=== PATIENT | male | born 1955 | race Caucasian/White ===

== ENCOUNTER 2024-09-23 14:02 | Emergency (ER) | payer OTHER ==
[2024-09-23] MEDS ORDERED: ASPIRIN 81 MG CHEWABLE TABLET ONE (15:01)
--- NOTE | 2024-09-23 15:02 | RAD REPORT ---
Procedure: Chest Single View HISTORY: Chest pain COMPARISON: May 2024 FINDINGS: The lungs appear clear of acute infiltrate. No significant pleural effusion noted. The heart is normal size. IMPRESSION: No acute abnormality is displayed.
[2024-09-23 15:19] LABS: Absolute Basophils 0.2 K/uL (0-0.5); Absolute Eosinophils 0.3 K/uL (0-0.5); Absolute Lymphocytes (CBC) 3.1 K/uL (0.7-4.9); Absolute Monocytes 1.8 K/uL (0.1-1.3); Absolute Neutrophil 14.3 K/uL (1.8-8.0); Eosinophils % 1.5 % (0-4.4); Hematocrit 43.8 % (39.6-49.0); Hemoglobin 15.1 g/dL (13.6-17.9); Lymphocytes % 15.7 % (15.3-44.8); MCH 34.2 pg (27.0-35.0); MCHC 34.5 g/dL (32.0-36.0); MPV 9.2 fL (7.6-11.3); Monocytes % 9.4 % (3.3-12.3); Neutrophils % 72.4 % (41.7-73.7); Platelets 348 thou/uL (152-406); RBC Red Blood Cell Count 4.43 M/uL (4.33-5.43); Red Cell Distribution Width 15.3 % (12.1-15.2)
[2024-09-23 15:23] LABS: PT Prothrombin Time 11.3 SECONDS (9.4-12.5); Protime INR 1.01
[2024-09-23 15:37] LABS: Anion Gap 7.6 mEq/L (5.0-15.0); Potassium 3.6 mEq/L (3.5-5.1); Troponin High Sensitivity 6.6 pg/mL (<58.9)
--- NOTE | 2024-09-23 18:10 | ER ---
Nurse's Notes [facility] Name: Raheel Galaviz Age: 68 yrs Sex: Male : 1955 Arrival Date: 09/23/2024 Time: 14:02 Bed 20 Private MD: Diagnosis: Chest pain, unspecified Presentation: 09/23 14:35 Chief complaint: Patient states: Patient presents in the ED c/o chest pain for the past os 2 months. Per patient, " The pain has been getting worse the past week. Every time i do something intensive, i run short of breath ". Coronavirus screen: Vaccine status: Patient reports receiving the 2nd dose of the covid vaccine. At this time, the client does not indicate any symptoms associated with coronavirus-19. Ebola Screen: No symptoms or risks identified at this time. Initial Sepsis Screen: Does the patient meet any 2 criteria? No. Patient's initial sepsis screen is negative. Initial Sepsis Screen: Does the patient have a suspected source of infection? No. Patient's initial sepsis screen is negative. Risk Assessment: Do you want to hurt yourself or someone else? Patient reports no desire to harm self or others. Onset of symptoms was September 16, 2024. 14:35 Method Of Arrival: Ambulatory os 14:35 Acuity: GILA 3 os Historical: - Allergies: 14:40 No Known Allergies; os - Home Meds: 14:40 None [Active]; os - Immunization history:: Adult Immunizations up to date. - Infectious Disease History:: Denies. - Social history:: Smoking status: Patient reports the use of cigarette tobacco products, smokes one pack cigarettes per day. Patient/guardian denies using alcohol, street drugs, IV drugs. Screenin:10 [facility] ED Fall Risk Assessment (Adult) History of falling in the last 3 months, hb including since admission No falls in past 3 months (0 pts) Confusion or Disorientation No (0 pts) Intoxicated or Sedated No (0 pts) Impaired Gait No (0 pts) Mobility Assist Device Used No (0 pt) Altered Elimination No (0 pt) Score/Fall Risk Level 0 - 2 = Low Risk Oriented to surroundings, Maintained a safe environment, Educated pt \\T\\ family on fall prevention, incl call for assistance when getting out of bed. Abuse screen: Denies threats or abuse. Denies injuries from another. Nutritional screening: No deficits noted. Tuberculosis screening: No symptoms or risk factors identified. Assessment: 15:09 General: Appears in no apparent distress. Behavior is calm, cooperative. Pain: hb Complains of pain in chest Pain currently is 4 out of 10 on a pain scale. Neuro: Level of Consciousness is awake, alert, obeys commands, Oriented to person, place, time, situation. Cardiovascular: Reports chest pain, shortness of breath, Rhythm is regular. Respiratory: Respiratory effort is even, unlabored, Respiratory pattern is regular, symmetrical. GI: No signs and/or symptoms were reported involving the gastrointestinal system. : No signs and/or symptoms were reported regarding the genitourinary system. EENT: No signs and/or symptoms were reported regarding the EENT system. Derm: Skin is pink, warm \\T\\ dry. Musculoskeletal: No signs and/or symptoms reported regarding the musculoskeletal system. 16:27 Reassessment: Patient appears in no apparent distress at this time. Patient and/or hb family updated on plan of care and expected duration. Pain level reassessed. Patient is alert, oriented x 3, equal unlabored respirations, skin warm/dry/pink. 17:53 Reassessment: Patient appears in no apparent distress at this time. Patient and/or hb family updated on plan of care and expected duration. Pain level reassessed. Patient is alert, oriented x 3, equal unlabored respirations, skin warm/dry/pink. Vital Signs: 14:35 BP 161 / 92; Pulse 74; Resp 18; Temp 98.2; Pulse Ox 97% ; Weight 95.25 kg; os 15:10 BP 151 / 95; Pulse 75; Resp 15; Pulse Ox 99% on R/A; hb 16:27 BP 148 / 90; Pulse 68; Resp 15; Pulse Ox 99% on R/A; hb 17:53 BP 146 / 86; Pulse 88; Resp 16; Pulse Ox 98% on R/A; hb ED Course: 14:08 Patient arrived in ED. mg5 14:09 Eduardo Gilmore MD is Attending Physician. ec2 14:40 Triage completed. os 14:54 XRAY Chest (1 view) In Process Unspecified. EDMS 14:56 EKG done, by ED staff, reviewed by Eduardo Gilmore MD. em1 15:08 Valarie Valdez, RN is Primary Nurse. hb 15:08 Initial lab(s) drawn, by me, sent to lab. Inserted saline lock: 20 gauge in left hb antecubital area, using aseptic technique. Blood collected. Flushed with 10 mL NS. 15:08 Patient maintains SpO2 saturation greater than 95% on room air. hb 15:08 Patient has correct armband on for positive identification. Bed in low position. Call hb light in reach. Provided Education on: use of call light, tests, result times.. Client placed on continuous cardiac and pulse oximetry monitoring. NIBP monitoring applied. property assessment monitor on. Pulse ox on. NIBP on. 15:11 Basic Metabolic Panel Sent. hb 15:11 CBC with Diff Sent. hb 15:11 NT PRO-BNP Sent. hb 15:11 PT-INR Sent. hb 15:11 Troponin HS Sent. hb 15:15 Arm band placed on. hb 17:41 Troponin High Sensitivity Sent. hb 17:41 Repeat lab(s) drawn. by me, sent to lab. hb 18:28 No provider procedures requiring assistance completed. IV discontinued, intact, hb bleeding controlled, No redness/swelling at site. Pressure dressing applied. Administered Medications: 15:11 Drug: Aspirin PO Chewable Tablet 324 mg PO once; 81 mg tablets x 4 Route: PO; hb 16:00 Follow up: Response: No adverse reaction hb Medication: 15:10 VIS not applicable for this client. hb Outcome: 18:09 Discharge ordered by . ec2 18:28 Discharged to home ambulatory, hb 18:28 Condition: stable 18:28 Discharge instructions given to patient, Instructed on discharge instructions, follow up and referral plans. medication usage, Demonstrated understanding of instructions, follow-up care, medications, 18:29 Patient left the ED. hb Signatures: Dispatcher [employer] Evelio Morgan em1 Valarie Valdez, RN RN hb Saumya Ponce RN RN Arabella Sequeira mg5 Eduardo Gilmore MD MD ec2
--- NOTE | 2024-09-23 18:10 | EDPHYS ---
Physician Documentation [facility] Name: Raheel Galaviz Age: 68 yrs Sex: Male : 1955 Arrival Date: 09/23/2024 Time: 14:02 Bed 20 Private MD: ED Physician Eduardo Gilmore HPI: 09/23 14:51 This 68 yrs old Male presents to ER via Ambulatory with complaints of Chest ec2 Tightness. 14:51 Patient arrives today for evaluation of chest pain. Patient reports that he has had ec2 chest pain ongoing for the past several months and worsening over the past several weeks which is what prompted evaluation today. States that he has baseline shortness of breath that worsens with activity. States that he had a stress test as well as an echo recently with Dr. Ellis and does not know the results of this. Patient reports otherwise no chronic medical problems and no daily medications. Does state that he smokes approximately 1-1/2 pack/day.. Historical: - Allergies: 14:40 No Known Allergies; os - Home Meds: 14:40 None [Active]; os - Immunization history:: Adult Immunizations up to date. - Infectious Disease History:: Denies. - Social history:: Smoking status: Patient reports the use of cigarette tobacco products, smokes one pack cigarettes per day. Patient/guardian denies using alcohol, street drugs, IV drugs. ROS: 14:51 Constitutional: as per hpi ec2 Exam: 14:51 Constitutional: GEN: NAD Head: atraumatic Eyes: EOMI Ears: External ears are ec2 normal. CV: regular rate LUNGS: no respiratory distress ABD: non-distended SKIN: no evidence of rashes MSK: no evidence of trauma Vital Signs: 14:35 BP 161 / 92; Pulse 74; Resp 18; Temp 98.2; Pulse Ox 97% ; Weight 95.25 kg; os 15:10 BP 151 / 95; Pulse 75; Resp 15; Pulse Ox 99% on R/A; hb 16:27 BP 148 / 90; Pulse 68; Resp 15; Pulse Ox 99% on R/A; hb 17:53 BP 146 / 86; Pulse 88; Resp 16; Pulse Ox 98% on R/A; hb MDM: 14:44 Medical Screening Exam initiated ec2 14:51 Data reviewed: vital signs, nurses notes. ED course: Patient arrives today for ec2 evaluation of chest pain. Examination is remarkable for well-appearing nontoxic individuals otherwise in no acute distress with a reassuring examination. Will obtain lab work, EKG, chest x-ray. Differential includes ACS, CHF, anemia.. 14:54 ED course: EKG independently reviewed and interpreted by me, shows normal sinus rhythm, ec2 rate of 71, no acute ST segment elevations, intervals are nonconcerning.. 15:41 ED course: Metabolic profile, BNP, troponin are nonactionable. CBC does show ec2 leukocytosis at 19.7.. 17:48 ED course: Repeat EKG independently reviewed and interpreted by me, shows normal sinus ec2 rhythm, rate of 66, no acute ST segment elevations, intervals are nonactionable.. 18:09 ED course: Repeat troponin is static. Will discharge home have the patient follow-up ec2 PCP. Return precautions given.. 09/23 14:41 Order name: Basic Metabolic Panel; Complete Time: 15:39 ec2 09/23 14:41 Order name: CBC with Diff; Complete Time: 15:28 ec2 09/23 14:41 Order name: NT PRO-BNP; Complete Time: 15:39 ec2 09/23 14:41 Order name: PT-INR; Complete Time: 15:28 ec2 09/23 14:41 Order name: Troponin HS; Complete Time: 15:39 ec2 09/23 17:06 Order name: Troponin High Sensitivity; Complete Time: 18:08 ec2 09/23 14:41 Order name: XRAY Chest (1 view); Complete Time: 15:28 ec2 09/23 14:41 Order name: EKG; Complete Time: 14:42 ec2 09/23 14:41 Order name: Cardiac monitoring; Complete Time: 14:56 ec2 09/23 14:41 Order name: EKG - Nurse/Tech; Complete Time: 14:56 ec2 09/23 14:41 Order name: IV Saline Lock; Complete Time: 15:11 ec2 09/23 14:41 Order name: Labs collected and sent; Complete Time: 15:11 ec2 09/23 14:41 Order name: O2 Per Protocol; Complete Time: 15:11 ec2 09/23 14:41 Order name: O2 Sat Monitoring; Complete Time: 15:11 ec2 09/23 16:09 Order name: Misc. Order: repeat ekg/trop at 1700; Complete Time: 17:41 ec2 09/23 17:06 Order name: EKG - Nurse/Tech; Complete Time: 17:41 ec2 Administered Medications: 15:11 Drug: Aspirin PO Chewable Tablet 324 mg PO once; 81 mg tablets x 4 Route: PO; hb 16:00 Follow up: Response: No adverse reaction hb Disposition Summary: 09/23/24 18:09 Discharge Ordered Notes: Location: Home ec2 Condition: Stable ec2 Diagnosis - Chest pain, unspecified ec2 Followup: ec2 - With: Private Physician - When: - Reason: Re-evaluation by your physician Discharge Instructions: - Discharge Summary Sheet ec2 - Nonspecific Chest Pain, Adult, [id number] ec2 Forms: - Medication Reconciliation Form ec2 - Antibiotic Education ec2 - Prescription Opioid Use ec2 - Patient Portal Instructions ec2 - Leadership Thank You Letter ec2 Signatures: Dispatcher [employer] Valarie Yang RN RN Saumya Ponce RN RN os Eduardo Gilmore MD MD ec2 Corrections: (The following items were deleted from the chart) 14:42 14:42 BASIC METABOLIC PANEL+C.LAB.BRZ ordered. EDMS EDMS 14:42 14:42 CBC+H.LAB.BRZ ordered. EDMS EDMS 14:42 14:42 PROBNP+C.LAB.BRZ ordered. EDMS EDMS 14:42 14:42 PROTIME (+INR)+COAG.LAB.BRZ ordered. EDMS EDMS 14:42 14:42 Troponin High Sensitivity+C.LAB.BRZ ordered. EDMS EDMS
[2024-09-23 19:33] VITALS: TEMP 98.2
[2024-09-23 19:46] VITALS: BP 146/86; O2SAT 98
--- NOTE | 2024-09-26 12:04 | EKG ---
Test Date: 2024-09-23 Test Time: 14:51:13 Chrome Polisher: BIANCA MEASUREMENT RESULTS: Intervals: Rate: 71 [place]: 170 QRSD: 104 QT: 412 QTc: 447 [place]: P: 52 [place]: 170 QRS: 72 T: 61 INTERPRETIVE STATEMENTS: Normal sinus rhythm Normal ECG Compared to ECG 11/17/2014 10:51:08 No significant changes Electronically Signed On 09-26-24 12:01:35 SHOTBLASTER by Mike Black
--- NOTE | 2024-09-27 10:08 | EKG ---
Test Date: 2024-09-23 Test Time: 17:43:56 Social Media Marketer: BIANCA MEASUREMENT RESULTS: Intervals: Rate: 66 DE: 176 QRSD: 98 QT: 422 QTc: 442 [place]: P: 51 DE: 176 QRS: 73 T: 67 INTERPRETIVE STATEMENTS: Normal sinus rhythm Normal ECG Compared to ECG 09/23/2024 14:51:13 No significant changes Electronically Signed On 09-27-24 10:06:45 INSTRUCTOR TAP DANCING by Mike Black
== END 2024-09-23 18:29 | disposition home or self-care (01) ==
LOC: ER 14:02
DX: R07.89 Other chest pain (principal); F17.210 Nicotine dependence, cigarettes, uncomplicated
CPT/HCPCS: 36415; 71045; 80048; 83880; 84484; 85025; 85610; 93005; 99284